=== PATIENT | male | born 1995 ===

== ENCOUNTER 2017-11-24 13:52 | Inpatient (IN) | payer MEDICAID, OTHER ==
[2017-11-24 14:32] VITALS: BMI 29.9
[2017-11-24] MEDS ORDERED: Sodium Chloride 0.9% 1,000 ML IV STA (14:39)
[2017-11-24 15:21] LABS: BASO # 0.02 K/mm3 (0.0-2.0); BASO % 0.1 % (0.0-3.0); EOS % 0.1 % (1.5-5.0); GRAN # 12.2 (1.4-6.5); GRAN % 81.2 % (50.0-68.0); HEMOGLOBIN 16.2 g/dL (14.0-18.0); LYMPH # 1.6 (1.2-3.4); LYMPH % 10.5 % (22.0-35.0); MEAN CELL VOLUME 93.3 fl (80.0-105.0); MEAN CORPUSCULAR HGB CONC 34.2 g/dl (31.0-37.0); MEAN PLATELET VOLUME 12.4 fl (7.0-11.0); MONO # 1.2 (0.1-0.6); MONO % 8.1 % (1.0-6.0); RBC 5.07 10^6/uL (3.5-6.1); RED CELL DISTRIBUTION WIDTH 13.5 % (11.5-14.5)
[2017-11-24 15:23] LABS: URINE BILIRUBIN NEGATIVE (NEGATIVE); URINE BLOOD LARGE (NEGATIVE); URINE GLUCOSE (UA) NEGATIVE (NEGATIVE); URINE LEUKOCYTE ESTERASE LARGE Leu/uL (NEGATIVE); URINE PROTEIN 100 mg/dL (<30 mg/dL)
[2017-11-24 15:24] LABS: URINE APPEARANCE CLOUDY (CLEAR); URINE COLOR LIGHT BROWN (YELLOW)
[2017-11-24 15:29] LABS: URINE AMORPHOUS SEDIMENT FEW; URINE BACTERIA MANY (NEG)
[2017-11-24 15:30] LABS: URINE RBC TNTC /hpf (0-2); URINE WBC TNTC /hpf (0-6)
[2017-11-24 15:43] LABS: ALB/GLOB RATIO 1.5 (1.1-1.8); ALBUMIN 4.5 g/dL (3.0-4.8); ALT/SGPT 30 U/L (7-56); AST/SGOT 18 U/L (17-59); BLOOD UREA NITROGEN 14 mg/dL (7-21); CALCIUM 10.1 mg/dL (8.4-10.5); GFR AFRICAN-AMERICAN > 60; GFR NON-AFRICAN AMERICAN > 60; LIPASE 36 U/L (23-300)
[2017-11-24 15:48] LABS: INR 1.09 (0.93-1.08); PARTIAL THROMBOPLASTIN TIME 34.8 Seconds (25.1-36.5); PROTHROMBIN TIME 12.4 SECONDS (9.4-12.5)
--- NOTE | 2017-11-24 16:15 | CT ---
PROCEDURE: CT Abdomen and Pelvis without intravenous contrast HISTORY: LEft back pain/abdominal pain COMPARISON: None. TECHNIQUE: Without contrast. Contrast Dose: Radiation dose: Total exam DLP = 815 mGy-cm. This CT exam was performed using one or more of the following dose reduction techniques: Automated exposure control, adjustment of the mA and/or kV according to patient size, and/or use of iterative reconstruction technique. FINDINGS: LOWER THORAX: Unremarkable. LIVER: Unremarkable. No gross lesion or ductal dilatation. GALLBLADDER AND BILE DUCTS: Unremarkable. PANCREAS: Unremarkable. No gross lesion or ductal dilatation. SPLEEN: Unremarkable. ADRENALS: Unremarkable. No mass. KIDNEYS AND URETERS: Unremarkable. No hydronephrosis. No solid mass. VASCULATURE: Unremarkable. No aortic aneurysm. BOWEL: Unremarkable. No obstruction. No gross mural thickening. APPENDIX: Unremarkable. Normal appendix. PERITONEUM: Unremarkable. No free fluid. No free air. LYMPH NODES: Unremarkable. No enlarged lymph nodes. BLADDER: Unremarkable. REPRODUCTIVE: Unremarkable. BONES: No acute fracture. OTHER FINDINGS: None. IMPRESSION: Unremarkable non contrast enhanced CT of the abdomen and pelvis.
--- NOTE | 2017-11-24 16:29 | ED PDOC ---
Arrival/HPI - General Chief Complaint: Male Genitourinary Time Seen by Provider: 11/24/17 14:35 Historian: Patient - History of Present Illness Narrative History of Present Illness (Text): 11/24/17 16:22 22yo male with no PMHx who present with 2days history of lower back pain, nausea , vomiting , hematuria and suprapubic abdominal pain since yesterday. States he did not take any medication for the pain. Reports subjective fever. Denies diarrhea, constipation, penile discharge, sick contact, any other complaint. Past Medical History - Provider Review Nursing Documentation Reviewed: Yes - Cardiac Hx Cardiac Disorders: No - Pulmonary Hx Respiratory Disorders: No - Neurological Hx Neurological Disorder: No - HEENT Hx HEENT Disorder: No - Renal Hx Renal Disorder: No - Endocrine/Metabolic Hx Endocrine Disorders: No - Hematological/Oncological Hx Blood Disorders: No - Integumentary Hx Dermatological Disorder: No - Musculoskeletal/Rheumatological Hx Musculoskeletal Disorders: No - Gastrointestinal Hx Gastrointestinal Disorders: No - Genitourinary/Gynecological Hx Genitourinary Disorders: Yes Other/Comment: had procedure done before - Psychiatric Hx Substance Use: Yes Family/Social History - Physician Review Nursing Documentation Reviewed: Yes Family/Social History: Unknown Family HX Smoking Status: Never Smoked Hx Alcohol Use: Yes Frequency of alcohol use: Socially Hx Substance Use: Yes Substance used: marijuana Allergies/Home Meds Allergies/Adverse Reactions: Allergies No Known Allergies Allergy (Verified 11/24/17 14:32) Home Medications: Home Meds Medication Instructions Recorded Confirmed No Known Home Med 11/24/17 11/24/17 Review of Systems - Physician Review All systems were reviewed & negative as marked: Yes - Review of Systems Constitutional: Normal Eyes: Normal ENT: Normal Respiratory: Normal Cardiovascular: Normal Gastrointestinal: Abdominal Pain, Nausea, Vomiting. absent: Constipation, Diarrhea, Hematochezia, Hematemesis Genitourinary Male: Dysuria, Frequency, Hematuria Musculoskeletal: Back Pain Skin: Normal Neurological: Normal Endocrine: Normal Hemo/Lymphatic: Normal Psychiatric: Normal Physical Exam Vital Signs Reviewed: Yes Vital Signs Temp Pulse Resp BP Pulse Ox 11/24/17 16:38 70 18 110/76 99 11/24/17 14:22 98.7 F 75 18 99/65 L 98 Temperature: Afebrile Blood Pressure: Normal Pulse: Regular Respiratory Rate: Normal Appearance: Positive for: Well-Appearing, Non-Toxic, Comfortable Pain Distress: None Mental Status: Positive for: Alert and Oriented X 3 - Systems Exam Head: Present: Atraumatic, Normocephalic Pupils: Present: PERRL Extroacular Muscles: Present: EOMI Conjunctiva: Present: Normal Mouth: Present: Moist Mucous Membranes Neck: Present: Normal Range of Motion Respiratory/Chest: Present: Clear to Auscultation, Good Air Exchange. No: Respiratory Distress, Accessory Muscle Use Cardiovascular: Present: Regular Rate and Rhythm, Normal S1, S2. No: Murmurs Abdomen: Present: Tenderness (Suprapubic), Normal Bowel Sounds, Other (soft). No: Distention, Peritoneal Signs, Rebound, Guarding, McBurney's Point Tender, Rovsing's Sign Present Back: Present: CVA Tenderness (right side). No: Midline Tenderness, Paraspinal Tenderness Upper Extremity: Present: Normal Inspection. No: Cyanosis, Edema Lower Extremity: Present: Normal Inspection. No: Edema Neurological: Present: GCS=15, CN II-XII Intact, Speech Normal Skin: Present: Warm, Dry, Normal Color. No: Rashes Psychiatric: Present: Alert, Oriented x 3, Normal Insight, Normal Concentration Medical Decision Making ED Course and Treatment: 11/24/17 18:30 Pt presented for stated history. Leukocytosis of 15.0 noted. Other labs was otherwise unremarkable. UA show large leuko, nitrite and large WBC. He had CVA tenderness in ED. He was admitted for pyelonephritis. Chlamydia/gono culture was ordered. Pt was treated w3ith Levaquin. Case was DW Dr. Ryan and pt was admitted. - Lab Interpretations Lab Results: 11/24/17 14:39 11/24/17 15:00 Lab Results 11/24/17 15:00: Sodium 142, Potassium 4.8, Chloride 102, Carbon Dioxide 31, Anion Gap 14, BUN 14, Creatinine 1.0, Est GFR ( Amer) > 60, Est GFR (Non- Af Amer) > 60, Random Glucose 98, Calcium 10.1, Total Bilirubin 0.7, AST 18, ALT 30, Alkaline Phosphatase 62, Total Protein 7.6, Albumin 4.5, Globulin 3.1, Albumin/Globulin Ratio 1.5, Lipase 36 11/24/17 14:39: Urine Color Light brown, Urine Appearance Cloudy, Urine pH 7.0, Ur Specific [place] 1.020, Urine Protein 100 H, Urine Glucose (UA) Negative, Urine Ketones Negative, Urine Blood Large H, Urine Nitrate Positive H, Urine Bilirubin Negative, Urine Urobilinogen 1.0 H, Ur Leukocyte Esterase Large H, Urine RBC Tntc, Urine WBC Tntc, Ur Epithelial Cells None, Amorphous Sediment Few , Urine Bacteria Many, Urine Other Uyeast 11/24/17 14:39: PT 12.4, INR 1.09 H, APTT 34.8 11/24/17 14:39: WBC 15.0 H, RBC 5.07, Hgb 16.2, Hct 47.3, MCV 93.3, MCH 32.0, MCHC 34.2, RDW 13.5, Plt Count 169, MPV 12.4 H, Gran % 81.2 H, Lymph % (Auto) 10.5 L, [place] % (Auto) 8.1 H, Eos % (Auto) 0.1 L, Baso % (Auto) 0.1, Gran # 12.20 H, Lymph # (Auto) 1.6, C[place] # (Auto) 1.2 H, Eos # (Auto) 0.0, Baso # (Auto ) 0.02 - RAD Interpretation Radiology Orders: 11/24/17 14:39 ABD & PELVIS W/O PO OR IV CONT [CT] Stat - Medication Orders Current Medication Orders: Discontinued Medications Sodium Chloride (Sodium Chloride 0.9%) 1,000 mls @ 1,000 mls/hr IV .Q1H STA Stop: 11/24/17 15:38 Last Admin: 11/24/17 15:07 Dose: 1,000 mls/hr eMAR Start Stop Document 11/24/17 15:07 [facility] (Rec: 11/24/17 15:08 [facility] [id number]) Intravenous Solution Start Date 11/24/17 Start Time 15:08 End Date 11/24/17 End time 16:10 Total Infusion Time 62 Levofloxacin/Dextrose (Levaquin 500mg) 500 mg in 100 mls @ 100 mls/hr IVPB STAT STA PRN Reason: Protocol Stop: 11/24/17 17:30 Last Admin: 11/24/17 16:40 Dose: 100 mls/hr eMAR Start Stop Document 11/24/17 16:40 [facility] (Rec: 11/24/17 16:41 [facility] [id number]) Intravenous Solution Start Date 11/24/17 Start Time 16:41 End Date 11/24/17 End time 17:45 Total Infusion Time 64 Ketorolac Tromethamine (Toradol) 30 mg IVP STAT STA Stop: 11/24/17 14:40 Last Admin: 11/24/17 15:09 Dose: 30 mg MAR Pain Assessment Document 11/24/17 15:09 [facility] (Rec: 11/24/17 15:09 [facility] [id number]) Pain Reassessment Is this a pain reassessment? No Sleep Is patient sleeping during reassessment? No Presence of Pain Presence of Pain Yes Pain Scale Used Pain Scale Used Numeric Location Pain Location Body Site Back Description Description Intermittent Intensity of Pain at present 5 IVP Administration Document 11/24/17 15:09 [facility] (Rec: 11/24/17 15:09 [facility] [id number]) Charges for Administration # of IVP Administrations 1 Ondansetron HCl (Zofran Inj) 4 mg IVP STAT STA Stop: 11/24/17 14:40 Last Admin: 11/24/17 15:09 Dose: 4 mg IVP Administration Document 11/24/17 15:09 [facility] (Rec: 11/24/17 15:09 [facility] [id number]) Charges for Administration # of IVP Administrations 1 Disposition/Present on Arrival - Present on Arrival Any Indicators Present on Arrival: No History of DVT/PE: No History of Uncontrolled Diabetes: No Urinary Catheter: No History of Decub. Ulcer: No History Surgical Site Infection Following: None - Disposition Have Diagnosis and Disposition been Completed?: Yes Diagnosis: Pyelonephritis Disposition: HOSPITALIZED Disposition Time: 16:30 Patient Plan: Admission Patient Problems: Current Active Problems Problem Status Onset Pyelonephritis Acute Condition: FAIR
[2017-11-24] MEDS ORDERED: levoFLOXacin 500 mg in D5W 500 MG/100 ML BAG IVPB STA (16:31)
[2017-11-24] MEDS: Sodium Chloride 0.9% 1,000 ML IV SCH (19:28)
[2017-11-24] MEDS: cefTRIAXone 2 GM IN NS 2 GM/100 ML BAG IVPB SCH (19:56)
--- NOTE | 2017-11-24 22:12 | CP.PCM.HP ---
<Sukhdeep Whiting - Last Filed: 11/25/17 04:58> History of Present Illness - History of Present Illness History of Present Illness: IM H&P for Hospitalist Service CC: Pain and blood with urination x2 days This is a 22 yo M who presents to [facility] with complaint of acutely tender and bloody urination that began in the middle of the day yesterday. As per patient , his only medical history is acute urinary obstruction (he is unclear on the cause, things "something was enlarged") that was treated surgically when he was 12 years old. No further episodes of obstruction since that time, and this is the first time he has had painful or bloody urine. Also reports right-sided abdominal pain radiating to flank initially, although by time of my exam, patient was complaining of more midline abdominal pain. Denies morales pus, bloody/purulent discharge from genitals when not urinating, chills, emesis, or diarrhea. Does admit to nausea, subjective fevers (never measured). Reports 2 regular sexual partners, inconsistent condom use, denies any MSM, IVDA, or instrumentation of his privates. Admits to daily marijuana use, last used several hours prior to admission. All other ROS in 12-system review negative. PMH: as above PSH: unspecified Urologic procedure at [facility] at age 12 Soc Hx: admits daily marijuana > 5 yrs, denies tobacco, denies IVDA, reports 2 recent alcohol binging episodes (>5 drinks, both after work on Fridays) within last month but denies drinking on week Fam Hx: unspecified renal disease in father's father, otherwise not aware of any family history PMD: None Home meds: none Present on Admission - Present on Admission Any Indicators Present on Admission: No History of DVT/PE: No History of Uncontrolled Diabetes: No Urinary Catheter: No Review of Systems - Review of Systems All systems: reviewed and no additional remarkable complaints except (as per HPI ) Past Patient History - Past Social History Smoking Status: Never Smoked - CARDIAC Hx Cardiac Disorders: No - PULMONARY Hx Respiratory Disorders: No - NEUROLOGICAL Hx Neurological Disorder: No - HEENT Hx HEENT Problems: No - RENAL Hx Chronic Kidney Disease: No - ENDOCRINE/METABOLIC Hx Endocrine Disorders: No - HEMATOLOGICAL/ONCOLOGICAL Hx Blood Disorders: No - INTEGUMENTARY Hx Dermatological Problems: No - MUSCULOSKELETAL/RHEUMATOLOGICAL Hx Musculoskeletal Disorders: No - GASTROINTESTINAL Hx Gastrointestinal Disorders: No - GENITOURINARY/GYNECOLOGICAL Hx Genitourinary Disorders: Yes Other/Comment: had procedure done before - PSYCHIATRIC Hx Substance Use: Yes - SURGICAL HISTORY Hx Surgeries: No Meds Allergies/Adverse Reactions: Allergies Allergy/AdvReac Type Severity Reaction Status Date / Time No Known Allergies Allergy Verified 11/24/17 14:32 Physical Exam - Constitutional Appears: Non-toxic, No Acute Distress (had just received several doses of pain medication prior to exam) - Head Exam Head Exam: ATRAUMATIC, NORMAL INSPECTION, NORMOCEPHALIC - Eye Exam Eye Exam: EOMI, Normal appearance. absent: Conjunctival injection, Scleral icterus Pupil Exam: absent: Irregular, Unequal - ENT Exam ENT Exam: Mucous Membranes Moist - Neck Exam Neck exam: Positive for: Full Rom, Normal Inspection - Respiratory Exam Respiratory Exam: Clear to Auscultation Bilateral, NORMAL BREATHING PATTERN. absent: Rales, Rhonchi, Wheezes - Cardiovascular Exam Cardiovascular Exam: REGULAR RHYTHM, RRR, +S1, +S2. absent: Bradycardia, Tachycardia, Irregular Rhythm, JVD, +S4 - GI/Abdominal Exam GI & Abdominal Exam: Normal Bowel Sounds, Soft, Tenderness (diffusely present in abdomen, most prominent at epigastric region). absent: Diminished Bowel Sounds, Distended, Firm, Guarding, Hyperactive Bowel Sounds, Hypoactive Bowel Sounds, Rigid - Exam Exam: NORMAL INSPECTION. absent: Scrotal Swelling, Testicular Tenderness, Uretheral Discharge, Bladder Distension External exam: NORMAL EXTERNAL EXAM. absent: Ecchymosis, Erythema, Lacerations , Lesions - Extremities Exam Extremities exam: Positive for: normal capillary refill, normal inspection, pedal pulses present. Negative for: calf tenderness, pedal edema, tenderness - Back Exam Additional comments: No CVA tenderness on L or R, but similar tenderness when tapping along mid- lumbar region at posterior midline - Neurological Exam Neurological exam: Alert, Oriented x3 - Psychiatric Exam Psychiatric exam: Anxious, Normal Affect - Skin Skin Exam: Dry, Intact, Normal Color, Warm Results - Vital Signs Recent Vital Signs: Last Vital Signs Temp 98.7 F 11/24/17 14:22 Pulse 69 11/24/17 20:00 Resp 18 11/24/17 20:00 BP 115/82 11/24/17 20:00 Pulse Ox 100 11/24/17 20:00 - Labs Result Diagrams: 11/24/17 14:39 11/24/17 15:00 Assessment & Plan - Assessment and Plan (Free Text) Assessment: This is a 22 yo M who presents to [facility] with complaint of acutely tender and bloody urination that began in the middle of the day yesterday. He is being treated for complicated UTI vs Pyelonephritis. Plan: 1) Painful hematuria -UTI vs cystitis vs pyelonephritis -UA in ED notable for large blood and leuk esterase, TNTC WBCs and RBCs, Many bacteria, and Urine yeast -Leukocytosis to 15, but afebrile, may be reactive 2/2 pain rather than sign of systemic infection -Blood cx, Urine cx, and procal ordered, f/u -UTI in male, by definition complicated UTI; started on rocephin 2g daily -CT abd pelvis negative for hydronephrosis -high risk for STI given inconsistent use of protection and now UTI/Pyelo in young male, HIV/RPR/Hepatitis panels and GC/Chlamydia ordered, f/u -Will need to follow up with urology as outpatient -IVF NS 100cc/hr for hydration, regular diet as tolerated Dispo: inpt med/surg, pending speciation and sensitivities, then can be transitioned to PO abx and discharged FEN: regular diet, NS 100cc/hr Access: Peripheral IV Consults: N/a Ppx: protonix for GI, SCDs for DVT Patient seen, reviewed, and discussed with attending, Dr. Solomon Decision To Admit - Pt Status Changed To: Hospital Disposition Of: Inpatient Admission - Admit Certification Admit to Inpatient:: After my assessment, the patient will require hospitalization for at least two midnights. This is because of the severity of symptoms shown, intensity of services needed, and/or the medical risk in this patient being treated as an outpatient. - . Bed Request Type: Med/Surg <Andres Solomon - Last Filed: 11/25/17 08:43> Results - Vital Signs Recent Vital Signs: Last Vital Signs Temp 98.6 F 11/25/17 07:43 Pulse 54 L 11/25/17 07:43 Resp 20 11/25/17 07:43 BP 126/70 11/25/17 07:43 Pulse Ox 98 11/25/17 07:43 - Labs Result Diagrams: 11/24/17 14:39 11/24/17 15:00 Attending/Attestation - Attestation I have personally seen and examined this patient.: Yes I have fully participated in the care of the patient.: Yes I have reviewed all pertinent clinical information: Yes Notes (Text): I have seen and examined the patient at bedside. Agree with the above note with the following additions/ exceptions: Briefly this is 22 year old male who came for evaluation of hematuria, dysuria and back pain. He was found to have acute pyelonephritis. Pain meds were given in ED so I could not appreciate CVA tenderness. Blood and urine culture pending. Will start IVF and start rocephin. CT abdomen and pelvis was negative for stones or hydronephrosis. Upon discharge patient will follow up with [facility] clinic. Dr Andres Solomon
[2017-11-25] MEDS: Sodium Chloride 0.9% 1,000 ML IV SCH ×3 (04:32→20:28)
[2017-11-25] MEDS: Pantoprazole 20 mg EC Tab PO SCH (06:26)
[2017-11-25 09:05] LABS: BASO # 0.01 K/mm3 (0.0-2.0); BASO % 0.1 % (0.0-3.0); EOS # 0.1 (0.0-0.7); EOS % 0.6 % (1.5-5.0); GRAN # 5.3 (1.4-6.5); GRAN % 64.2 % (50.0-68.0); HEMOGLOBIN 15.1 g/dL (14.0-18.0); LYMPH # 2.3 (1.2-3.4); LYMPH % 27.5 % (22.0-35.0); MEAN CELL VOLUME 92.7 fl (80.0-105.0); MEAN CORPUSCULAR HEMOGLOBIN 31.6 pg (25.0-35.0); MEAN CORPUSCULAR HGB CONC 34.1 g/dl (31.0-37.0); MEAN PLATELET VOLUME 12.1 fl (7.0-11.0); MONO # 0.6 (0.1-0.6); MONO % 7.6 % (1.0-6.0); RBC 4.78 10^6/uL (3.5-6.1); RED CELL DISTRIBUTION WIDTH 13.3 % (11.5-14.5); WHITE BLOOD COUNT 8.3 10^3/ul (4.5-11.0)
[2017-11-25 09:10] LABS: ALB/GLOB RATIO 1.4 (1.1-1.8); ALT/SGPT 32 U/L (7-56); AST/SGOT 15 U/L (17-59); BLOOD UREA NITROGEN 13 mg/dL (7-21); CALCIUM 9.5 mg/dL (8.4-10.5); GFR AFRICAN-AMERICAN > 60; GFR NON-AFRICAN AMERICAN > 60
[2017-11-25] MEDS: cefTRIAXone 2 GM IN NS 2 GM/100 ML BAG IVPB SCH (09:52)
--- NOTE | 2017-11-25 13:44 | CP.PCM.PN ---
<Chad Dumont - Last Filed: 11/25/17 13:37> Subjective - Date & Time of Evaluation Date of Evaluation: 11/25/17 Time of Evaluation: 13:37 - Subjective Subjective: Medicine Progress Note: Patient seen and assessed at bedside. Patient was noted to have an episode of non-bloody emesis overnight requiring a stat dose of Zofran. Patient reports a separate episode of non-bloody vomiting this morning as well. He does endorse that the zofran relieved his symptoms. He also continues to endorse right lower back pain but notes that this has improved since admission. He denies any fevers , chills, headache, chest pain, SOB, cough, abdominal pain, diarrhea, constipation, further hematuria, dysuria, skin changes or any numbness/tingling/ weakness of any extremity. Objective - Vital Signs/Intake and Output Vital Signs (last 24 hours): Temp Pulse Resp BP Pulse Ox 98.6 F 54 L 20 126/70 98 11/25/17 07:43 11/25/17 07:43 11/25/17 07:43 11/25/17 07:43 11/25/17 07:43 Intake and Output: 11/25/17 11/25/17 06:59 18:59 Intake Total 1340 Output Total 140 Balance 1200 - Medications Medications: Current Medications Ceftriaxone Sodium (Rocephin 2 Gm Ivpb) 2 gm in 100 mls @ 100 mls/hr IVPB DAILY [facility] PRN Reason: Protocol Last Admin: 11/25/17 09:52 Dose: 100 mls/hr Sodium Chloride (Sodium Chloride 0.9%) 1,000 mls @ 100 mls/hr IV .Q10H [facility] Last Admin: 11/25/17 04:32 Dose: 100 mls/hr Ondansetron HCl (Zofran Inj) 4 mg IVP Q4H PRN PRN Reason: Nausea/Vomiting Last Admin: 11/25/17 09:52 Dose: 4 mg Pantoprazole Sodium (Protonix Ec Tab) 20 mg PO 0600 [facility] Last Admin: 11/25/17 06:26 Dose: 20 mg - Labs Labs: 11/25/17 08:50 11/25/17 08:50 PT 12.4 SECONDS (9.4-12.5) 11/24/17 14:39 INR 1.09 (0.93-1.08) H 11/24/17 14:39 APTT 34.8 Seconds (25.1-36.5) 11/24/17 14:39 - Constitutional Appears: Non-toxic, No Acute Distress - Head Exam Head Exam: ATRAUMATIC, NORMOCEPHALIC - Eye Exam Eye Exam: EOMI, Normal appearance Pupil Exam: NORMAL ACCOMODATION, PERRL - ENT Exam ENT Exam: Mucous Membranes Moist, Normal Exam - Neck Exam Neck Exam: Full ROM, Normal Inspection. absent: Lymphadenopathy - Respiratory Exam Respiratory Exam: Clear to Ausculation Bilateral, NORMAL BREATHING PATTERN. absent: Accessory Muscle Use, Chest Wall Tenderness, Decreased Breath Sounds, Prolonged Expiratory Phase, Rales, Rhonchi, Wheezes, Respiratory Distress, Stridor - Cardiovascular Exam Cardiovascular Exam: REGULAR RHYTHM, RRR, +S1, +S2. absent: Bradycardia, Tachycardia, Clicks, Diastolic murmur, Gallop, Irregular Rhythm, JVD, Rubs, +S4 , Murmur - GI/Abdominal Exam GI & Abdominal Exam: Soft, Normal Bowel Sounds. absent: Distended, Firm, Guarding, Tenderness, Rebound - Extremities Exam Extremities Exam: Full ROM, Normal Capillary Refill, Normal Inspection. absent : Calf Tenderness, Joint Swelling, Pedal Edema, Tenderness - Back Exam Back Exam: Full ROM, paraspinal tenderness (Right sided lumbar). absent: CVA tenderness (L), CVA tenderness (R), muscle spasm, NORMAL INSPECTION, rash noted , tenderness, vertebral tenderness - Neurological Exam Neurological Exam: Alert, Awake, CN II-XII Intact, Oriented x3 - Psychiatric Exam Psychiatric exam: Normal Affect, Normal Mood - Skin Skin Exam: Dry, Intact, Normal Color, Warm Assessment and Plan - Assessment and Plan (Free Text) Assessment: 22 year old male with no significant past medical history who presented with painful hematuria of one days duration. Patient was found to have UTI on UA. CT Abdomen/Pelvis showed no abnormalities. Patient is currently on day two of IV Rocephin. STI panel pending. Plan: 1. Complicated UTI -CT Abdomen/Pelvis showed no abnormalities -UA showed large blood, positive nitrate, positive LE, TNTC RBC/WBC, and many bacteria -Blood and urine cultures pending -Leukocytosis on admission resolved and patient afebrile and without tachycardia or tachypnea -Continue IV Rocephin 2gm daily (Day 2) -Continue normal saline at 100mls/hr -Started Zofran 4mg IVP Q4H PRN for N/V -Procal, HIV, RPR, hepatitis panel, and Chlamydia/GC pending -Continue bladder scans as needed GI Prophylaxis: Protonix DVT Prophylaxis: SCD's Patient seen and case discussed with attending, Dr. Andres Solomon. <Andres Solomon - Last Filed: 11/27/17 16:47> Objective - Vital Signs/Intake and Output Vital Signs (last 24 hours): Temp Pulse Resp BP Pulse Ox 98.2 F 59 L 20 135/69 99 11/27/17 08:05 11/27/17 08:05 11/27/17 08:05 11/27/17 08:05 11/27/17 08:05 Intake and Output: 11/27/17 11/27/17 06:59 18:59 Intake Total 2840 Balance 2840 - Medications Medications: Current Medications Sodium Chloride (Sodium Chloride 0.9%) 1,000 mls @ 100 mls/hr IV .Q10H [facility] Last Admin: 11/27/17 08:17 Dose: 100 mls/hr Lactobacillus Acidophilus (Bacid Acidophilus) 1 cap PO BID [facility] Last Admin: 11/27/17 13:18 Dose: 1 cap Ondansetron HCl (Zofran Inj) 4 mg IVP Q4H PRN PRN Reason: Nausea/Vomiting Last Admin: 11/27/17 09:20 Dose: 4 mg Pantoprazole Sodium (Protonix Ec Tab) 20 mg PO 0600 [facility] Last Admin: 11/27/17 06:04 Dose: 20 mg Trimethoprim/Sulfamethoxazole (Bactrim Ds Tab) 1 tab PO BID [facility] PRN Reason: Protocol Stop: 12/02/17 12:01 Last Admin: 11/27/17 13:18 Dose: 1 tab - Labs Labs: 11/27/17 10:00 11/27/17 10:00 PT 12.4 SECONDS (9.4-12.5) 11/24/17 14:39 INR 1.09 (0.93-1.08) H 11/24/17 14:39 APTT 34.8 Seconds (25.1-36.5) 11/24/17 14:39 Attending/Attestation - Attestation I have personally seen and examined this patient.: Yes I have fully participated in the care of the patient.: Yes I have reviewed all pertinent clinical information, including history, physical exam and plan: Yes Notes (Text): I have seen and examined the patient at bedside. Agree with the above note with the following additions/ exceptions: Briefly this is 22 year old male who came for evaluation of hematuria, dysuria and back pain. He was found to have acute pyelonephritis vs cystitis. Patient is afebrile and does not complain of back pain. Dysuria and hematuia has improved. Patient has been having vomiting few times. Blood and urine culture pending. Will continue IVF and rocephin. CT abdomen and pelvis was negative for stones or hydronephrosis. Upon discharge patient will follow up with [facility] clinic. Dr Andres Solomon
[2017-11-25 13:56] LABS: HEPATITIS B SURFACE AG Negative (NEGATIVE)
[2017-11-25 14:01] LABS: HEPATITIS A IGM NEGATIVE (NEGATIVE); HEPATITIS B CORE AB NEGATIVE (NEGATIVE)
[2017-11-25 14:41] LABS: HEPATITIS C ANTIBODY NEGATIVE (NEGATIVE)
[2017-11-26] MEDS: Sodium Chloride 0.9% 1,000 ML IV SCH ×3 (03:45→21:57)
[2017-11-26] MEDS: Pantoprazole 20 mg EC Tab PO SCH (05:35)
[2017-11-26 07:03] LABS: BASO # 0.01 K/mm3 (0.0-2.0); BASO % 0.1 % (0.0-3.0); EOS % 0.5 % (1.5-5.0); GRAN # 4.92 (1.4-6.5); GRAN % 63.3 % (50.0-68.0); HEMOGLOBIN 15.5 g/dL (14.0-18.0); LYMPH # 2.1 (1.2-3.4); LYMPH % 27.1 % (22.0-35.0); MEAN CELL VOLUME 91.6 fl (80.0-105.0); MEAN CORPUSCULAR HEMOGLOBIN 31.1 pg (25.0-35.0); MEAN CORPUSCULAR HGB CONC 33.9 g/dl (31.0-37.0); MEAN PLATELET VOLUME 12.2 fl (7.0-11.0); MONO # 0.7 (0.1-0.6); RBC 4.99 10^6/uL (3.5-6.1); RED CELL DISTRIBUTION WIDTH 13.3 % (11.5-14.5); WHITE BLOOD COUNT 7.8 10^3/ul (4.5-11.0)
[2017-11-26 07:21] LABS: ALB/GLOB RATIO 1.4 (1.1-1.8); ALT/SGPT 26 U/L (7-56); AST/SGOT 19 U/L (17-59); BLOOD UREA NITROGEN 11 mg/dL (7-21); CALCIUM 9.6 mg/dL (8.4-10.5); GFR AFRICAN-AMERICAN > 60; GFR NON-AFRICAN AMERICAN > 60
[2017-11-26] MEDS: cefTRIAXone 2 GM IN NS 2 GM/100 ML BAG IVPB SCH (09:25)
--- NOTE | 2017-11-26 20:22 | CP.PCM.PN ---
<Chad Dumont - Last Filed: 11/26/17 20:18> Subjective - Date & Time of Evaluation Date of Evaluation: 11/26/17 Time of Evaluation: 20:18 - Subjective Subjective: Medicine Progress Note: Patient seen and assessed at bedside. No acute events overnight. Patient denies any complaints at this time. He denies any fevers, chills, headache, chest pain , SOB, cough, abdominal pain, N/V, diarrhea, constipation, further hematuria, dysuria, skin changes or any numbness/tingling/weakness of any extremity. Objective - Vital Signs/Intake and Output Vital Signs (last 24 hours): Temp Pulse Resp BP Pulse Ox 97.7 F 68 18 143/83 96 11/26/17 14:00 11/26/17 14:00 11/26/17 14:00 11/26/17 14:00 11/26/17 14:00 - Medications Medications: Current Medications Ceftriaxone Sodium (Rocephin 2 Gm Ivpb) 2 gm in 100 mls @ 100 mls/hr IVPB DAILY [facility] PRN Reason: Protocol Last Admin: 11/26/17 09:25 Dose: 100 mls/hr Sodium Chloride (Sodium Chloride 0.9%) 1,000 mls @ 100 mls/hr IV .Q10H [facility] Last Admin: 11/26/17 15:23 Dose: 100 mls/hr Ondansetron HCl (Zofran Inj) 4 mg IVP Q4H PRN PRN Reason: Nausea/Vomiting Last Admin: 11/26/17 08:05 Dose: 4 mg Pantoprazole Sodium (Protonix Ec Tab) 20 mg PO 0600 [facility] Last Admin: 11/26/17 05:35 Dose: 20 mg - Labs Labs: 11/26/17 06:20 11/26/17 06:20 PT 12.4 SECONDS (9.4-12.5) 11/24/17 14:39 INR 1.09 (0.93-1.08) H 11/24/17 14:39 APTT 34.8 Seconds (25.1-36.5) 11/24/17 14:39 - Constitutional Appears: Well, Non-toxic, No Acute Distress - Head Exam Head Exam: ATRAUMATIC, NORMOCEPHALIC - Eye Exam Eye Exam: EOMI, Normal appearance, PERRL Pupil Exam: NORMAL ACCOMODATION, PERRL - ENT Exam ENT Exam: Mucous Membranes Moist, Normal Exam - Neck Exam Neck Exam: Full ROM, Normal Inspection. absent: Lymphadenopathy - Respiratory Exam Respiratory Exam: Clear to Ausculation Bilateral, NORMAL BREATHING PATTERN - Cardiovascular Exam Cardiovascular Exam: REGULAR RHYTHM, +S1, +S2. absent: Murmur - GI/Abdominal Exam GI & Abdominal Exam: Soft, Normal Bowel Sounds. absent: Tenderness - Extremities Exam Extremities Exam: Full ROM, Normal Capillary Refill, Normal Inspection. absent : Calf Tenderness, Joint Swelling, Pedal Edema - Back Exam Back Exam: NORMAL INSPECTION. absent: CVA tenderness (L), CVA tenderness (R) - Neurological Exam Neurological Exam: Alert, Awake, CN II-XII Intact, Normal Gait, Oriented x3 - Psychiatric Exam Psychiatric exam: Normal Affect, Normal Mood - Skin Skin Exam: Dry, Intact, Normal Color, Warm Assessment and Plan - Assessment and Plan (Free Text) Assessment: 22 year old male with no significant past medical history who presented with painful hematuria of one days duration. Patient was found to have UTI on UA. CT Abdomen/Pelvis showed no abnormalities. Patient is currently on day two of IV Rocephin. STI and hepatitis panel negative, including HIV, G/C, and syphilis. Discharge pending sensitivity report from urine culture as UTI is atypical in patients demographic. Plan: 1. Complicated UTI -CT Abdomen/Pelvis showed no abnormalities -UA showed large blood, positive nitrate, positive LE, TNTC RBC/WBC, and many bacteria -Blood cultures negative for 48 hours -Urine cultures growing gram negative rods with sensitivity pending -Afebrile and without leukocytosis, tachycardia or tachypnea -Continue IV Rocephin 2gm daily (Day 3) -Continue normal saline at 100mls/hr -Continue Zofran 4mg IVP Q4H PRN for N/V -Procal, HIV, RPR, hepatitis panel, and Chlamydia/GC all negative -Continue bladder scans as needed GI Prophylaxis: Protonix DVT Prophylaxis: SCD's Patient seen and case discussed with attending, Dr. Andres Solomon. <Andres Solomon - Last Filed: 11/27/17 17:00> Objective - Vital Signs/Intake and Output Vital Signs (last 24 hours): Temp Pulse Resp BP Pulse Ox 99.1 F 68 20 119/76 94 L 11/27/17 14:00 11/27/17 14:00 11/27/17 14:00 11/27/17 14:00 11/27/17 14:00 Intake and Output: 11/27/17 11/27/17 06:59 18:59 Intake Total 2840 Balance 2840 - Medications Medications: Current Medications Sodium Chloride (Sodium Chloride 0.9%) 1,000 mls @ 100 mls/hr IV .Q10H [facility] Last Admin: 11/27/17 08:17 Dose: 100 mls/hr Lactobacillus Acidophilus (Bacid Acidophilus) 1 cap PO BID [facility] Last Admin: 11/27/17 13:18 Dose: 1 cap Ondansetron HCl (Zofran Inj) 4 mg IVP Q4H PRN PRN Reason: Nausea/Vomiting Last Admin: 11/27/17 09:20 Dose: 4 mg Pantoprazole Sodium (Protonix Ec Tab) 20 mg PO 0600 [facility] Last Admin: 11/27/17 06:04 Dose: 20 mg Trimethoprim/Sulfamethoxazole (Bactrim Ds Tab) 1 tab PO BID [facility]EL[facility] PRN Reason: Protocol Stop: 12/02/17 12:01 Last Admin: 11/27/17 13:18 Dose: 1 tab - Labs Labs: 11/27/17 10:00 11/27/17 10:00 PT 12.4 SECONDS (9.4-12.5) 11/24/17 14:39 INR 1.09 (0.93-1.08) H 11/24/17 14:39 APTT 34.8 Seconds (25.1-36.5) 11/24/17 14:39 Attending/Attestation - Attestation I have personally seen and examined this patient.: Yes I have fully participated in the care of the patient.: Yes I have reviewed all pertinent clinical information, including history, physical exam and plan: Yes Notes (Text): I have seen and examined the patient at bedside. Agree with the above note with the following additions/ exceptions: Briefly this is 22 year old male who came for evaluation of hematuria, dysuria and back pain. He was found to have acute pyelonephritis vs cystitis. Patient is afebrile and does not complain of back pain. Dysuria and hematuria has resolved.He did not have any vomiting today. Patient reports that he feels very weak. Will continue IV fluids. Blood culture is negative. Urine culture is still pending. Will continue rocephin. CT abdomen and pelvis was negative for stones or hydronephrosis. Upon discharge patient will follow up with [facility] clinic. Dr Andres Solomon
[2017-11-27] MEDS: Pantoprazole 20 mg EC Tab PO SCH (06:04)
[2017-11-27 08:06] VITALS: RESP 20
[2017-11-27] MEDS: Sodium Chloride 0.9% 1,000 ML IV SCH ×2 (08:17→20:29)
[2017-11-27] MEDS: cefTRIAXone 2 GM IN NS 2 GM/100 ML BAG IVPB SCH (09:20)
[2017-11-27 10:07] LABS: BASO # 0.01 K/mm3 (0.0-2.0); BASO % 0.1 % (0.0-3.0); EOS % 0.5 % (1.5-5.0); GRAN # 5.19 (1.4-6.5); HEMOGLOBIN 16.1 g/dL (14.0-18.0); LYMPH # 1.6 (1.2-3.4); LYMPH % 21.2 % (22.0-35.0); MEAN CELL VOLUME 89.1 fl (80.0-105.0); MEAN CORPUSCULAR HEMOGLOBIN 31.4 pg (25.0-35.0); MEAN CORPUSCULAR HGB CONC 35.3 g/dl (31.0-37.0); MEAN PLATELET VOLUME 11.6 fl (7.0-11.0); MONO # 0.8 (0.1-0.6); MONO % 10.2 % (1.0-6.0); RBC 5.12 10^6/uL (3.5-6.1); RED CELL DISTRIBUTION WIDTH 12.7 % (11.5-14.5); WHITE BLOOD COUNT 7.6 10^3/ul (4.5-11.0)
[2017-11-27 10:15] LABS: BLOOD UREA NITROGEN 12 mg/dL (7-21); CALCIUM 9.7 mg/dL (8.4-10.5); GFR AFRICAN-AMERICAN > 60; GFR NON-AFRICAN AMERICAN > 60
--- NOTE | 2017-11-27 12:03 | CP.PCM.PN ---
<Chad Dumont - Last Filed: 11/27/17 12:00> Subjective - Date & Time of Evaluation Date of Evaluation: 11/27/17 Time of Evaluation: 12:00 - Subjective Subjective: Medicine Progress Note: Patient seen and assessed at bedside. Patient reports that he experienced significant nausea and one episode of non-bloody vomiting this AM after breakfast. He also endorses one episode of non-bloody and non-malodorous diarrhea overnight. He denies any fevers, chills, headache, chest pain, SOB, cough, abdominal pain, hematemesis, hematochezia, melena, constipation, further hematuria, dysuria, skin changes or any numbness/tingling/weakness of any extremity. Objective - Vital Signs/Intake and Output Vital Signs (last 24 hours): Temp Pulse Resp BP Pulse Ox 98.2 F 59 L 20 135/69 99 11/27/17 08:05 11/27/17 08:05 11/27/17 08:05 11/27/17 08:05 11/27/17 08:05 Intake and Output: 11/27/17 11/27/17 06:59 18:59 Intake Total 2840 Balance 2840 - Medications Medications: Current Medications Sodium Chloride (Sodium Chloride 0.9%) 1,000 mls @ 100 mls/hr IV .Q10H [facility] Last Admin: 11/27/17 08:17 Dose: 100 mls/hr Lactobacillus Acidophilus (Bacid Acidophilus) 1 cap PO BID [facility]ELA Ondansetron HCl (Zofran Inj) 4 mg IVP Q4H PRN PRN Reason: Nausea/Vomiting Last Admin: 11/27/17 09:20 Dose: 4 mg Pantoprazole Sodium (Protonix Ec Tab) 20 mg PO 0600 [facility] Last Admin: 11/27/17 06:04 Dose: 20 mg Trimethoprim/Sulfamethoxazole (Bactrim Ds Tab) 1 tab PO BID [facility] PRN Reason: Protocol Stop: 12/02/17 12:01 - Labs Labs: 11/27/17 10:00 11/27/17 10:00 PT 12.4 SECONDS (9.4-12.5) 11/24/17 14:39 INR 1.09 (0.93-1.08) H 11/24/17 14:39 APTT 34.8 Seconds (25.1-36.5) 11/24/17 14:39 - Constitutional Appears: Non-toxic, No Acute Distress - Head Exam Head Exam: ATRAUMATIC, NORMOCEPHALIC - Eye Exam Eye Exam: EOMI, Normal appearance Pupil Exam: NORMAL ACCOMODATION, PERRL - ENT Exam ENT Exam: Mucous Membranes Moist, Normal Exam - Neck Exam Neck Exam: Full ROM, Normal Inspection. absent: Lymphadenopathy - Respiratory Exam Respiratory Exam: Clear to Ausculation Bilateral, NORMAL BREATHING PATTERN. absent: Accessory Muscle Use, Chest Wall Tenderness, Decreased Breath Sounds, Prolonged Expiratory Phase, Rales, Rhonchi, Wheezes, Respiratory Distress, Stridor - Cardiovascular Exam Cardiovascular Exam: REGULAR RHYTHM, RRR, +S1, +S2. absent: Bradycardia, Tachycardia, Clicks, Diastolic murmur, Gallop, Irregular Rhythm, JVD, Rubs, +S4 , Murmur - GI/Abdominal Exam GI & Abdominal Exam: Soft, Normal Bowel Sounds. absent: Distended, Firm, Guarding, Tenderness (No tenderness but significant nausea reported), Rebound - Extremities Exam Extremities Exam: Full ROM, Normal Capillary Refill, Normal Inspection. absent : Calf Tenderness, Joint Swelling, Pedal Edema, Tenderness - Back Exam Back Exam: NORMAL INSPECTION. absent: CVA tenderness (L), CVA tenderness (R) - Neurological Exam Neurological Exam: Alert, Awake, CN II-XII Intact, Normal Gait, Oriented x3 - Psychiatric Exam Psychiatric exam: Normal Affect, Normal Mood - Skin Skin Exam: Dry, Intact, Normal Color, Warm Assessment and Plan - Assessment and Plan (Free Text) Assessment: 22 year old male with no significant past medical history who presented with painful hematuria of one days duration. Patient was found to have UTI on UA. CT Abdomen/Pelvis showed no abnormalities. Patient is currently on day two of IV Rocephin. STI and hepatitis panel negative, including HIV, G/C, and syphilis. Urine cultures grew E. Coli sensitive to Bactrim, which was started and Rocephin discontinued. Patient reports that he had one episode of diarrhea overnight and work up for C. Diff was sent. Plan: 1. Complicated E. Coli UTI -CT Abdomen/Pelvis showed no abnormalities -UA showed large blood, positive nitrate, positive LE, TNTC RBC/WBC, and many bacteria -Blood cultures negative for 48 hours -Urine cultures grew E. Coli sensitive to Bactrim -Afebrile and without leukocytosis, tachycardia or tachypnea -Start Bactrim DS PO BID (Day 1) -Discontinue IV Rocephin -Continue normal saline at 100mls/hr -Continue Zofran 4mg IVP Q4H PRN for N/V -Procal, HIV, RPR, hepatitis panel, and Chlamydia/GC all negative -Continue bladder scans as needed 2. Diarrhea -C. Diff T/A, stool culture, and fecal leukocytes pending GI Prophylaxis: Protonix DVT Prophylaxis: SCD's Patient seen and case discussed with attending, Dr. Andres Solomon. <Andres Solomon B - Last Filed: 11/27/17 17:07> Objective - Vital Signs/Intake and Output Vital Signs (last 24 hours): Temp Pulse Resp BP Pulse Ox 99.1 F 68 20 119/76 94 L 11/27/17 14:00 11/27/17 14:00 11/27/17 14:00 11/27/17 14:00 11/27/17 14:00 Intake and Output: 11/27/17 11/27/17 06:59 18:59 Intake Total 2840 Balance 2840 - Medications Medications: Current Medications Sodium Chloride (Sodium Chloride 0.9%) 1,000 mls @ 100 mls/hr IV .Q10H [facility] Last Admin: 11/27/17 08:17 Dose: 100 mls/hr Lactobacillus Acidophilus (Bacid Acidophilus) 1 cap PO BID [facility] Last Admin: 11/27/17 17:01 Dose: 1 cap Ondansetron HCl (Zofran Inj) 4 mg IVP Q4H PRN PRN Reason: Nausea/Vomiting Last Admin: 11/27/17 09:20 Dose: 4 mg Pantoprazole Sodium (Protonix Ec Tab) 20 mg PO 0600 [facility] Last Admin: 11/27/17 06:04 Dose: 20 mg Trimethoprim/Sulfamethoxazole (Bactrim Ds Tab) 1 tab PO BID [facility] PRN Reason: Protocol Stop: 12/02/17 12:01 Last Admin: 11/27/17 17:01 Dose: 1 tab - Labs Labs: 11/27/17 10:00 11/27/17 10:00 PT 12.4 SECONDS (9.4-12.5) 03/13/18 14:39 INR 1.09 (0.93-1.08) H 11/24/17 14:39 APTT 34.8 Seconds (25.1-36.5) 11/24/17 14:39 Attending/Attestation - Attestation I have personally seen and examined this patient.: Yes I have fully participated in the care of the patient.: Yes I have reviewed all pertinent clinical information, including history, physical exam and plan: Yes Notes (Text): I have seen and examined the patient at bedside. Agree with the above note with the following additions/ exceptions: Briefly this is 22 year old male who came for evaluation of hematuria, dysuria and back pain. He was found to have acute pyelonephritis vs cystitis. Patient is afebrile and does not complain of back pain. Dysuria and hematuria has resolved. Blood culture is negative. Urine culture is growing EColi. Patient was about to be discharged however he started to develop nausea, vomiting and diarrhea. He denies abdominal pain. As per patient's parents, he might be using percocet from streets. UDS revealed marijuana only. Stool for cdiff sent. Will continue IVF and rocephin. CT abdomen and pelvis was negative for stones or hydronephrosis. Upon discharge patient will follow up with [facility] clinic. Dr Andres Solomon
[2017-11-27 13:12] LABS: BARBITURATES, UR NEGATIVE (NEGATIVE); BENZODIAZEPINES, UR NEGATIVE (NEGATIVE); OPIATES, UR NEGATIVE (NEGATIVE); PHENCYCLIDINE, UR NEGATIVE (NEGATIVE)
[2017-11-27] MEDS: Lactobacillus Acidophilus 500 MU Cap PO SCH ×2 (13:18→17:01)
[2017-11-27] MEDS: Tmp-Smz 800 mg-160 mg DS Tab PO SCH ×2 (13:18→17:01)
[2017-11-28] MEDS: Pantoprazole 20 mg EC Tab PO SCH (07:19)
[2017-11-28] MEDS: Sodium Chloride 0.9% 1,000 ML IV SCH ×2 (07:21→09:48)
[2017-11-28 09:04] VITALS: BP 142/80; PULSE 55; TEMP 98.6; O2SAT 96
[2017-11-28] MEDS: Tmp-Smz 800 mg-160 mg DS Tab PO SCH (09:47)
[2017-11-28] MEDS: Lactobacillus Acidophilus 500 MU Cap PO SCH (09:47)
--- NOTE | 2017-11-29 18:15 | CP.PCM.DIS ---
Provider - Provider Date of Admission: 11/24/17 16:37 Attending physician: Andres Solomon MD Primary care physician: NO PRIMARY CARE PROVIDER Time Spent in preparation of Discharge (in minutes): 45 Hospital Course - Lab Results Lab Results: Micro Results 11/27/17 12:30 Stool C. difficile Antigen & Toxin A,B (M - Final 11/24/17 19:30 Blood Blood Culture - Preliminary NO GROWTH AFTER 4 DAYS 11/24/17 19:15 Blood Blood Culture - Preliminary NO GROWTH AFTER 4 DAYS 11/24/17 Unknown Urine,Clean Catch Urine Culture - Final Escherichia Coli Most Recent Lab Values WBC 7.6 10^3/ul (4.5-11.0) 11/27/17 10:00 RBC 5.12 10^6/uL (3.5-6.1) 11/27/17 10:00 Hgb 16.1 g/dL (14.0-18.0) 11/27/17 10:00 Hct 45.6 % (42.0-52.0) 11/27/17 10:00 MCV 89.1 fl (80.0-105.0) 11/27/17 10:00 MCH 31.4 pg (25.0-35.0) 11/27/17 10:00 MCHC 35.3 g/dl (31.0-37.0) 11/27/17 10:00 RDW 12.7 % (11.5-14.5) 11/27/17 10:00 Plt Count 177 10^3/uL (120.0-450.0) 11/27/17 10:00 MPV 11.6 fl (7.0-11.0) H 11/27/17 10:00 Gran % 68.0 % (50.0-68.0) 11/27/17 10:00 Lymph % (Auto) 21.2 % (22.0-35.0) L 11/27/17 10:00 Calhoun % (Auto) 10.2 % (1.0-6.0) H 11/27/17 10:00 Eos % (Auto) 0.5 % (1.5-5.0) L 11/27/17 10:00 Baso % (Auto) 0.1 % (0.0-3.0) 11/27/17 10:00 Gran # 5.19 (1.4-6.5) 11/27/17 10:00 Lymph # (Auto) 1.6 (1.2-3.4) 11/27/17 10:00 Calhoun # (Auto) 0.8 (0.1-0.6) H 11/27/17 10:00 Eos # (Auto) 0.0 (0.0-0.7) 11/27/17 10:00 Baso # (Auto) 0.01 K/mm3 (0.0-2.0) 11/27/17 10:00 PT 12.4 SECONDS (9.4-12.5) 11/24/17 14:39 INR 1.09 (0.93-1.08) H 11/24/17 14:39 APTT 34.8 Seconds (25.1-36.5) 11/24/17 14:39 Sodium 141 mmol/L (132-148) 11/27/17 10:00 Potassium 3.7 mmol/L (3.6-5.0) 11/27/17 10:00 Chloride 106 mmol/L (98-107) 11/27/17 10:00 Carbon Dioxide 25 mmol/L (21-33) 11/27/17 10:00 Anion Gap 14 (10-20) 11/27/17 10:00 BUN 12 mg/dL (7-21) 11/27/17 10:00 Creatinine 0.8 mg/dl (0.8-1.5) 11/27/17 10:00 Est GFR ( Amer) > 60 11/27/17 10:00 Est GFR (Non-Af Amer) > 60 11/27/17 10:00 Random Glucose 107 mg/dL (70-110) 11/27/17 10:00 Calcium 9.7 mg/dL (8.4-10.5) 11/27/17 10:00 Phosphorus 4.1 mg/dL (2.5-4.5) 11/26/17 06:20 Magnesium 2.0 mg/dL (1.7-2.2) 11/26/17 06:20 Total Bilirubin 0.7 mg/dL (0.2-1.3) 11/26/17 06:20 AST 19 U/L (17-59) 03/15/18 06:20 ALT 26 U/L (7-56) 11/26/17 06:20 Alkaline Phosphatase 53 U/L (38-126) 11/26/17 06:20 Total Protein 6.9 g/dL (5.8-8.3) 11/26/17 06:20 Albumin 4.0 g/dL (3.0-4.8) 11/26/17 06:20 Globulin 2.8 gm/dL 11/26/17 06:20 Albumin/Globulin Ratio 1.4 (1.1-1.8) 11/26/17 06:20 Lipase 36 U/L (23-300) 11/24/17 15:00 Procalcitonin < 0.05 NG/ML (0.19-0.49) L 11/24/17 19:15 Urine Color Light brown (YELLOW) 11/24/17 14:39 Urine Appearance Cloudy (CLEAR) 11/24/17 14:39 Urine pH 7.0 (4.7-8.0) 11/24/17 14:39 Ur Specific Banks 1.020 (1.005-1.035) 11/24/17 14:39 Urine Protein 100 mg/dL (<30 mg/dL) H 11/24/17 14:39 Urine Glucose (UA) Negative mg/dL (NEGATIVE) 11/24/17 14:39 Urine Ketones Negative mg/dL (NEGATIVE) 11/24/17 14:39 Urine Blood Large (NEGATIVE) H 11/24/17 14:39 Urine Nitrate Positive (NEGATIVE) H 11/24/17 14:39 Urine Bilirubin Negative (NEGATIVE) 11/24/17 14:39 Urine Urobilinogen 1.0 E.U./dL (<1 E.U./dL) H 11/24/17 14:39 Ur Leukocyte Esterase Large Kadi/uL (NEGATIVE) H 11/24/17 14:39 Urine RBC Tntc /hpf (0-2) 11/24/17 14:39 Urine WBC Tntc /hpf (0-6) 11/24/17 14:39 Ur Epithelial Cells None /hpf (0-5) 11/24/17 14:39 Amorphous Sediment Few 11/24/17 14:39 Urine Bacteria Many (NEG) 11/24/17 14:39 Urine Other Uyeast 11/24/17 14:39 Stool Leukocytes, Qual Negative (NEGATIVE) 11/27/17 11:07 Urine Opiates Screen Negative (NEGATIVE) 11/27/17 12:30 Urine Methadone Screen Negative (NEGATIVE) 11/27/17 12:30 Ur Barbiturates Screen Negative (NEGATIVE) 11/27/17 12:30 Ur Phencyclidine Scrn Negative (NEGATIVE) 11/27/17 12:30 Ur Amphetamines Screen Negative (NEGATIVE) 11/27/17 12:30 U Benzodiazepines Scrn Negative (NEGATIVE) 11/27/17 12:30 U Oth Cocaine Metabols Negative (NEGATIVE) 11/27/17 12:30 U Cannabinoids Screen Positive (NEGATIVE) H 11/27/17 12:30 RPR Nonreactive (NONREACTIVE) 11/24/17 19:15 C.trachomatis RNA (TMA) Not detected (Not Detected) 11/24/17 16:24 Hepatitis A IgM Ab Negative (NEGATIVE) 11/24/17 19:15 Hep Bs Antigen Negative (NEGATIVE) 11/24/17 19:15 Hep B Core IgM Ab Negative (NEGATIVE) 11/24/17 19:15 Hepatitis C Antibody Negative (NEGATIVE) 11/24/17 19:15 HIV 1&2 Ag/Ab, 4th Gen Nonreactive 11/24/17 19:15 N.gonorrhoeae RNA (TMA) Not detected (Not Detected) 11/24/17 16:24 - Hospital Course Hospital Course: HPI on presentation: This is a 22 yo M who presents to [facility] with complaint of acutely tender and bloody urination that began in the middle of the day yesterday. As per patient , his only medical history is acute urinary obstruction (he is unclear on the cause, things "something was enlarged") that was treated surgically when he was 12 years old. No further episodes of obstruction since that time, and this is the first time he has had painful or bloody urine. Also reports right-sided abdominal pain radiating to flank initially, although by time of my exam, patient was complaining of more midline abdominal pain. Denies morales pus, bloody/purulent discharge from genitals when not urinating, chills, emesis, or diarrhea. Does admit to nausea, subjective fevers (never measured). Reports 2 regular sexual partners, inconsistent condom use, denies any MSM, IVDA, or instrumentation of his privates. Admits to daily marijuana use, last used several hours prior to admission. All other ROS in 12-system review negative. CT Scan showed no hydro Patient was found to be stable on day of discharge, was advised on cessation of marijuana and percocet, and was sent home on po bactrim and lactobacilus. Discharge Exam - Head Exam Head Exam: ATRAUMATIC, NORMOCEPHALIC - Eye Exam Eye Exam: EOMI, Normal appearance, PERRL Pupil Exam: NORMAL ACCOMODATION, PERRL - Respiratory Exam Respiratory Exam: Clear to PA & Lateral, NORMAL BREATHING PATTERN, UNREMARKABLE - Cardiovascular Exam Cardiovascular Exam: REGULAR RHYTHM, RRR. absent: Diastolic murmur, Systolic Murmur - GI/Abdominal Exam GI & Abdominal Exam: Normal Bowel Sounds - Neurological Exam Neurological exam: Alert, CN II-XII Intact, Normal Gait, Oriented x3, Reflexes Normal - Psychiatric Exam Psychiatric exam: Normal Affect, Normal Mood - Skin Skin Exam: Dry, Intact, Normal Color, Warm Discharge Plan - Discharge Medications Prescriptions: Lactobacillus Acidophilus [Bacid Acidophilus] 1 cap PO BID #28 cap Sulfamethoxazole/Trimethoprim [Bactrim DS Tab] 1 tab PO BID #28 tab - Follow Up Plan Condition: FAIR Disposition: HOME/ ROUTINE Instructions: STD Prevention, Urinary Tract Infection in Men (DC) Additional Instructions: Please follow up with the [facility] on the first floor of the hospital within one week. Please take all medications as prescribed - You are being sent home on Bactrim and a Probiotic, take 2 X a day for 14 days If your symptoms worsen or persist, please seek emergency medical attention Referrals: PCP,NO [Primary Care Provider] -
== END 2017-11-28 11:33 | disposition home or self-care (01) | DRG 690 ==
LOC: ED 13:52 → ERH 16:37 → 5RNO 20:27
PROVIDERS: ADMIT Internal Medicine; ATTEND Hospitalist
DX: N12 Tubulo-interstitial nephritis, not specified as acute or chronic (principal); B96.20 Unspecified Escherichia coli [E. coli] as the cause of diseases classified elsewhere; F12.90 Cannabis use, unspecified, uncomplicated; R40.2412 Glasgow coma scale score 13-15, at arrival to emergency department